=== PATIENT | female | born 1955 | race Caucasian/White ===

== ENCOUNTER 2018-03-25 10:26 | Emergency (ER) | payer MEDICAID ==
[~2018-03-25] VITALS: Ht 154.9 cm; Wt 84.3 kg
[2018-03-25] MEDS ORDERED: OXYcodone/APAP 5/325MG TABLET PO ONE (12:30)
[2018-03-25] MEDS ORDERED: OXYcodone/APAP 5/325MG TABLET ONE (12:30)
[2018-03-25 14:13] VITALS: BP 129/86
== END 2018-03-25 14:16 | disposition home or self-care (01) ==
LOC: ED 14:10
DX: S52.512A Displaced fracture of left radial styloid process, initial encounter for closed fracture (principal); S80.02XA Contusion of left knee, initial encounter; S52.612A Displaced fracture of left ulna styloid process, initial encounter for closed fracture; W01.0XXA Fall on same level from slipping, tripping and stumbling without subsequent striking against object, initial encounter; Y93.89 Activity, other specified; Y92.009 Unspecified place in unspecified non-institutional (private) residence as the place of occurrence of the external cause; Y99.8 Other external cause status
CPT/HCPCS: 29125; 99284